=== PATIENT | female | born 1960 | race Caucasian/White ===

== ENCOUNTER 2020-10-13 10:23 | Emergency (ER) | payer SELFPAY ==
[~2020-10-13] VITALS: Ht 157.5 cm; Wt 56.7 kg
[2020-10-13] MEDS ORDERED: IBUP600 PO (11:31)
[2020-10-13] MEDS ORDERED: ONDA4ODT MM (11:31)
== END 2020-10-13 11:40 | disposition home or self-care (01) ==
LOC: ER 10:23
DX: S06.0X9A Concussion with loss of consciousness of unspecified duration, initial encounter (principal); S50.811A Abrasion of right forearm, initial encounter; S80.211A Abrasion, right knee, initial encounter
CPT/HCPCS: 70450; 73070; 99284-25